=== PATIENT | female | born 1955 | race Caucasian/White ===

== ENCOUNTER 2023-04-30 09:42 | Outpatient (RCR) | payer MEDICARE, SELFPAY | END 2023-05-08 14:00 | disposition home or self-care (01) | LOC: PT 09:42 | DX: M43.16 Spondylolisthesis, lumbar region (principal); M48.062 Spinal stenosis, lumbar region with neurogenic claudication | CPT/HCPCS: 97110 ==

== ENCOUNTER 2023-04-30 09:43 | Outpatient (RCR) | payer MEDICARE, SELFPAY | END 2023-05-08 14:00 | disposition home or self-care (01) | LOC: OT 09:43 | DX: Z96.621 Presence of right artificial elbow joint (principal) | CPT/HCPCS: 97140; 97530 ==

== ENCOUNTER 2023-07-23 15:17 | Outpatient (RCR) | payer MEDICARE, SELFPAY | END 2023-09-02 15:01 | disposition home or self-care (01) | LOC: PT 15:17 | DX: R26.89 Other abnormalities of gait and mobility (principal) | CPT/HCPCS: 97110; 97112; 97116; 97162; 97530 ==

== ENCOUNTER 2023-11-19 12:20 | Outpatient (RCR) | payer MEDICARE, SELFPAY | END 2023-11-29 06:00 | disposition home or self-care (01) | LOC: PT 12:20 | DX: R26.89 Other abnormalities of gait and mobility (principal); Z98.1 Arthrodesis status | CPT/HCPCS: 97110; 97113; 97162 ==

== ENCOUNTER 2023-11-30 09:26 | Outpatient (RCR) | payer MEDICARE, SELFPAY | END 2024-01-11 15:48 | disposition home or self-care (01) | LOC: PT 09:26 | PROVIDERS: PCP Orthopaedic Surgery Orthopaedic Surgery of the Spine; Visit Provider Orthopaedic Surgery Orthopaedic Surgery of the Spine | DX: M54.50 Low back pain, unspecified (principal); R26.89 Other abnormalities of gait and mobility; Z98.1 Arthrodesis status | CPT/HCPCS: 97110; 97113 ==